=== PATIENT | female | born 1995 | race African-American/Black ===

== ENCOUNTER 2018-07-04 00:37 | Emergency (ER) | payer OTHER ==
[2018-07-04 00:46] VITALS: BP 145/91
--- NOTE | 2018-07-04 00:47 | ED Physician Documentation ---
PD HPI LOWER EXT INJURY - Stated complaint Stated Complaint: R ANKLE PX - Chief complaint Chief Complaint: Trauma Ext - History obtained from History obtained from: Patient - History of Present Illness PD HPI LOW EXT INJURY LOCATION: Right, Ankle Type of injury: Fall, Twist (inversion) Timing - onset: Last night Timing - details: Abrupt onset, Still present (did not hurt as much right after the injury but more this morning when got up. Hurting to weight bear, so limping or hopping mostly today) Worsened by: Moving, Palpating, Other (walking) Associated symptoms: Swelling. No: Weakness Similar symptoms before: Has not had sx before Review of Systems Skin: denies: Abrasion (s), Laceration (s) Musculoskeletal: reports: Joint pain, Joint swelling Neurologic: denies: Focal weakness, Numbness PD PAST MEDICAL HISTORY - Past Medical History Cardiovascular: None Respiratory: None Neuro: None Endocrine/Autoimmune: None Musculoskeletal: None - Present Medications Home Medications: Ambulatory Orders Medication Instructions Recorded Confirmed Bcp 07/04/18 - Allergies Allergies/Adverse Reactions: Allergies Allergy/AdvReac Type Severity Reaction Status Date / Time No Known Drug Allergies Allergy Verified 07/04/18 00:44 PD ED PE NORMAL - Vitals Vital signs reviewed: Yes - General General: Alert and oriented X 3, No acute distress (not while sitting), Well developed/nourished - Derm Derm: Normal color, Warm and dry - Extremities Extremities: No edema, No calf tenderness / cord, Other (The right ankle is tender over the ATFL area. The midfoot and Achilles are not tender. The medial ankle is nontender. There is some mild effusion. There is pain enough to limit ligament stress testing.) - Neuro Neuro: No motor deficit, No sensory deficit Results - Vitals Vitals: Vital Signs - 24 hr 07/04/18 00:40 Temperature 36.3 C L Heart Rate 79 Respiratory 18 Rate Blood Pressure 145/91 H O2 Saturation 99 Oxygen O2 Source Room air - Rads (name of study) right ankle xray Radiology: Prelim report reviewed (No fracture seen.), See rad report PD MEDICAL DECISION MAKING - ED course Complexity details: reviewed results, considered differential, d/w patient Departure - Departure Disposition: 01 Home, Self Care Clinical Impression: Ankle sprain Qualifiers: Encounter type: initial encounter Involved ligament of ankle: anterior talofibular ligament Laterality: right Qualified Code(s): S93.491A - Sprain of other ligament of right ankle, initial encounter Condition: Stable Record reviewed to determine appropriate education?: Yes Instructions: ED Sprain Ankle Comments: Your x-ray appears normal. Use the ankle brace when up and around for 1-2 weeks or more until it feels fully healed. Crutches as needed for partial weightbearing or no weightbearing and progress as able based on pain. The ankle sprain can heel with weightbearing as long as it supported with the brace. Ibuprofen or naproxen 2-3 times a day for pain and swelling. Add Tylenol if needed for pain. Recheck if not improving well over the next week or so. Discharge Date/Time: 07/04/18 02:16
[2018-07-04] MEDS ORDERED: IBUPROFEN 600 MG TABLET PO STA (01:04)
[2018-07-04] MEDS ORDERED: ACETAMINOPHEN 325 MG TABLET PO STA (01:04)
--- NOTE | 2018-07-04 01:55 | XRAY Report ---
Reason: injury/fall Procedure Date: 07/04/2018 Accession Number: [id number] / [id number] Procedure: XR - Ankle 3 View RT CPT Code: FULL RESULT: EXAM: RIGHT ANKLE RADIOGRAPHY EXAM DATE: 07/04/2018 01:44 AM. CLINICAL HISTORY: Injury/fall. COMPARISON: None. TECHNIQUE: 3 views. FINDINGS: Bones: Normal. No fractures or bone lesions. Joints: Normal. No effusion. No subluxations. The ankle mortise is normally aligned. Soft Tissues: Lateral soft tissue swelling. No radiopaque foreign body. IMPRESSION: Soft tissue swelling, but no evidence of acute fracture. [facility]
== END 2018-07-04 02:16 | disposition home or self-care (01) ==
LOC: ED 00:37
DX: S93.491A Sprain of other ligament of right ankle, initial encounter (principal); W10.9XXA Fall (on) (from) unspecified stairs and steps, initial encounter
CPT/HCPCS: 73610; 99282; 99283; A9270